=== PATIENT | male | born 1990 | race Caucasian/White ===

== ENCOUNTER 2016-09-20 23:17 | Emergency (ER) | payer BC, OTHER ==
[2016-09-21] VITALS: BP 113/69; PULSE 74; TEMP 98.4; BMI 27.8
--- NOTE | 2016-09-21 00:09 | PDOC ---
History of Present Illness - General History Source: Patient Exam Limitations: No Limitations - History of Present Illness Initial Comments: 09/21/16 00:51 The patient is a 26-year-old male, with no significant past medical history, who presents to the emergency department with constant chest pain for the past 3 days. The patient states the chest pain is localized to the left side and is constant. The patient describes his chest as being tight. He rates the pain as a 7/10. The patient denies that the pain radiates, but reports associated muscle weakness in left arm near his elbow. The patient states his symptoms are exacerbating upon eating fatty foods, but does not report any alleviating factors. The patient reports dyspnea and SOB when the pain occurs. The patient denies associated diaphoresis or palpitations. The patient reports intermittent dizziness, blurry vision, and headache for the past 2 months. The patient denies fever or chills. The patient denies nausea, vomiting, diarrhea, and constipation. Allergies: None reported. Past Surgical History: None reported. Social History: Non-smoker. Denies alcohol or drug use. <Arlet Carrion - Last Filed: 09/21/16 00:51> - General History Source: Patient <JennyferDebbiSanjeev - Last Filed: 09/21/16 03:05> - General Chief Complaint: Chest Pain Stated Complaint: CHEST PAIN AND LEFT ARM Time Seen by Provider: 09/21/16 00:05 Past History <Arlet Carrion - Last Filed: 09/21/16 00:51> - Psycho/Social/Smoking Cessation Hx Anxiety: No Suicidal Ideation: No Smoking History: Never smoked Have you smoked in the past 12 months: No Information on smoking cessation initiated: No Hx Alcohol Use: No Drug/Substance Use Hx: No Substance Use Type: None <Sanjeev Peña - Last Filed: 09/21/16 03:05> - Past Medical History Allergies/Adverse Reactions: Allergies Allergy/AdvReac Type Severity Reaction Status Date / Time No Known Allergies Allergy Verified 09/20/16 23:58 Home Medications: Ambulatory Orders NK [No Known Home Medication] 06/22/16 Review of Systems - Review of Systems Able to Perform ROS?: Yes Comments:: 09/21/16 00:36 CONSTITUTIONAL: Absent: fever, chills, diaphoresis, generalized weakness, malaise, loss of appetite HEENT: Absent: rhinorrhea, nasal congestion, throat pain, throat swelling, difficulty swallowing, mouth swelling, ear pain, eye pain, visual Changes CARDIOVASCULAR: Present: +chest pain Absent: syncope, palpitations, irregular heart rate, lightheadedness, peripheral edema RESPIRATORY: Present: +dyspnea with exertion Absent: cough, shortness of breath, orthopnea, wheezing, stridor, hemoptysis GASTROINTESTINAL: Absent: abdominal pain, abdominal distension, nausea, vomiting, diarrhea, constipation, melena, hematochezia GENITOURINARY: Absent: dysuria, frequency, urgency, hesitancy, hematuria, flank pain, genital pain MUSCULOSKELETAL: Present: +left arm weakness Absent: myalgia, arthralgia, joint swelling SKIN: Absent: rash, itching, pallor HEMATOLOGIC/IMMUNOLOGIC: Absent: easy bleeding, easy bruising, lymphadenopathy, frequent infections ENDOCRINE: Absent: unexplained weight gain, unexplained weight loss, heat intolerance, cold intolerance NEUROLOGIC: Present: +dizziness, +headache, +blurry vision Absent: paresthesias, unsteady gait, seizure, mental status changes, bladder or bowel incontinence PSYCHIATRIC: Absent: anxiety, depression, suicidal or homicidal ideation, hallucinations. <Arlet Carrion - Last Filed: 09/21/16 00:51> *Physical Exam - Vital Signs Last Vital Signs Temp Pulse Resp BP Pulse Ox 98.4 F 74 20 113/69 100 09/20/16 23:58 09/20/16 23:58 09/20/16 23:58 09/20/16 23:58 09/20/16 23:58 - Physical Exam Comments: 09/21/16 00:35 GENERAL: Well developed, well nourished. Awake and alert. No acute distress. HEENT: Normocephalic, atraumatic. PERRLA, EOMI. No conjunctival pallor. Sclera are non- icteric. Moist mucous membranes. Oropharynx is clear. NECK: Supple. Full ROM. No JVD. Carotid pulses 2+ and symmetric, without bruits. No thyromegaly. No lymphadenopathy. CARDIOVASCULAR: Regular rate and rhythm. No murmurs, rubs, or gallops. Distal pulses are 2+ and symmetric. PULMONARY: No evidence of respiratory distress. Lungs clear to auscultation bilaterally. No wheezing, rales or rhonchi. ABDOMINAL: Soft. Non-tender. Non-distended. No rebound or guarding. No organomegaly. Normoactive bowel sounds. MUSCULOSKELETAL Normal range of motion at all joints. No bony deformities or tenderness. No CVA tenderness. EXTREMITIES: No cyanosis. No clubbing. No edema. No calf tenderness. SKIN: Warm and dry. Normal capillary refill. No rashes. No jaundice. NEUROLOGICAL: Alert, awake, appropriate. Cranial nerves 2-12 intact. No deficits to light touch and temperature in face, upper extremities and lower extremities. No motor deficits in the in face, upper extremities and lower extremities. Normoreflexic in the upper and lower extremities. Normal speech. Toes are down- going bilaterally. Gait is normal without ataxia. PSYCHIATRIC: Cooperative. Good eye contact. Appropriate mood and affect. <Arlet Carrion - Last Filed: 09/21/16 00:51> - Vital Signs Last Vital Signs Temp Pulse Resp BP Pulse Ox 98.4 F 74 20 113/69 100 09/20/16 23:58 09/20/16 23:58 09/20/16 23:58 09/20/16 23:58 09/20/16 23:58 <Sanjeev Peña - Last Filed: 09/21/16 03:05> ED Treatment Course - LABORATORY CBC & Chemistry Diagram: 09/21/16 00:46 09/21/16 00:46 <Sanjeev Peña - Last Filed: 09/21/16 03:05> Medical Decision Making - Medical Decision Making 09/21/16 02:14 Dr. Peña: The scribe's documentation has been prepared under my direction and personally reviewed by me in its entirery. I confirm that the note above accurately reflects all work, treatment, procedures, and medical decision making performed by me. <Sanjeev Peña - Last Filed: 09/21/16 03:05> *DC/Admit/Observation/Transfer - Attestations Scribe Attestion: 09/21/16 00:35 Documentation prepared by Arlet Carrion, acting as medical oncologist for Sanjeev Peña DO. <Arlet Cariron - Last Filed: 09/21/16 00:51> - Discharge Dispostion Admit: No <Sanjeev Peña - Last Filed: 09/21/16 03:05> Diagnosis at time of Disposition: Chest pain Qualifiers: Chest pain type: other chest pain Qualified Code(s): R07.89 - Other chest pain - Discharge Dispostion Disposition: HOME Condition at time of disposition: Stable - Referrals Referrals: Vinay Barrera MD [Staff Physician] - Kelvin Gonzalez MD [Staff Physician] - - Patient Instructions Printed Discharge Instructions: DI for Chest Pain - Post Discharge Activity Work/School Note: Back to Work
[2016-09-21] MEDS ORDERED: IBUPROFEN 400 MG TABLET (FP) PO ONE ×2 (00:34→00:39)
[2016-09-21 00:59] LABS: BASOPHIL 0.5 % (0-2.0); EOSINOPHIL 2.5 % (0-4.5); MCH 29.1 pg (25.7-33.7); MCHC 32.5 g/dl (32.0-35.9); MEAN CELL VOLUME 89.6 fl (80-96); MEAN PLT VOLUME 7.9 fl (7.5-11.1); NEUTROPHILS 44.1 % (42.8-82.8); PLATELET COUNT 199 K/MM3 (134-434); RDW 12.6 % (11.9-15.9); WHITE BLOOD COUNT 8.2 K/mm3 (4.0-10.0)
[2016-09-21 01:03] LABS: URINE APPEARANCE CLEAR; URINE BILIRUBIN NEGATIVE (NEGATIVE); URINE BLOOD NEGATIVE (NEGATIVE); URINE COLOR YELLOW; URINE GLUCOSE (UA) NEGATIVE (NEGATIVE); URINE KETONE NEGATIVE (NEGATIVE); URINE NITRITE NEGATIVE (NEGATIVE); URINE PROTEIN NEGATIVE (NEGATIVE); URINE UROBILINOGEN NEGATIVE E.U./dl (0.2-1.0)
[2016-09-21 01:06] LABS: URINE LEUK ESTERASE TRACE (NEGATIVE)
[2016-09-21 01:10] LABS: URINE MUCUS FEW; URINE RBC 3 /hpf (0-3); URINE WBC 5 /hpf (3-5)
[2016-09-21 01:26] LABS: ANION GAP 8 (8-16); CALCIUM 7.9 mg/dL (8.5-10.1); CO2 28 mmol/L (21-32); CREATININE 0.8 mg/dL (0.7-1.3); GLUCOSE,RANDOM 95 mg/dL (74-106)
[2016-09-21 01:29] LABS: TROPONIN I < 0.02 ng/ml (0.00-0.05)
--- NOTE | 2016-09-21 10:55 | EKG ---
Test Reason : Blood Pressure : / mmHG Vent. Rate : 071 BPM Atrial Rate : 071 BPM P-R Int : 148 ms QRS Dur : 102 ms QT Int : 382 ms P-R-T Axes : 045 059 030 degrees QTc Int : 415 ms NORMAL SINUS RHYTHM NON-SPECIFIC INTRA-VENTRICULAR CONDUCTION DELAY NO PREVIOUS ECGS AVAILABLE Confirmed by EBONY RAZO MD ([id number]) on 09/21/2016 10:55:34 AM Referred By: Confirmed By:EBONY RAZO MD
== END 2016-09-21 03:20 | disposition home or self-care (01) ==
LOC: JER 23:17
DX: R07.89 Other chest pain (principal)
CPT/HCPCS: 36415; 80048; 81003; 81015; 82550; 84484; 85025; 93005; 93010; 99283-25

== ENCOUNTER 2019-05-21 09:13 | Day surgery (SDC) | payer OTHER, BC | END 2019-05-21 15:00 | disposition home or self-care (01) | LOC: JRADIR 09:13 ==

== ENCOUNTER 2019-05-24 17:00 | Emergency (ER) | payer OTHER | END 2019-05-24 22:56 | disposition home or self-care (01) | LOC: JER 17:00 ==